=== PATIENT | male | born 1990 | race Two or more races ===

== ENCOUNTER → 2024-12-26 | Outpatient (CLI) | payer OTHER, SELFPAY ==
--- NOTE | 2024-12-26 14:43 | XR_ITS ---
Examination: PA lateral chest 2 views Technique: Upright PA lateral chest 2 views Exam date and time: December 26, 2024 1448 hrs. Indications: Aspiration of dental disease today Findings: No opaque foreign body noted Normal heart size No aspiration pneumonia The osseous structures are intact Impression: No opaque foreign body visualized
== END | disposition home or self-care (01) ==
PROVIDERS: PCP Family Medicine; Referring Provider Family Medicine; Visit Provider Family Medicine
DX: K08.89 Other specified disorders of teeth and supporting structures (principal)
CPT/HCPCS: 71046